=== PATIENT | male | born 1960 | race Caucasian/White ===

== ENCOUNTER 2016-12-31 12:48 | Emergency (ER) | payer OTHER ==
[~2016-12-31] VITALS: Ht 175.3 cm; Wt 90.9 kg
[2016-12-31 12:57] VITALS: BP 159/95; RESP 16; O2SAT 80
--- NOTE | 2016-12-31 13:09 | ED.REPORT ---
HPI-Facial Injury Date of Service Dec 31, 2016 ED Provider: Yannick Bhardwaj DO The patient is an otherwise healthy 56 year old male who presents to the ED due to a nosebleed onset 2 hrs ago. Yesterday, he sneezed once and began having a heavy nosebleed from his right nostril that went down the back of his throat. It stopped bleeding within 15 minutes. Today, he was sitting down 2 hrs [employer] when he started bleeding again, it again stopped in 15 minutes. He denies weakness, dizziness, and chest pain. Nursing Notes Stated Complaint: BLOODY NOSE Chief Complaint: ENT & Mouth Nursing Notes Reviewed: Yes Allergies: Coded Allergies: No Known Allergies (Unverified , 12/31/16) Scheduled PRN Oxymetazoline HCl (No Drip Nasal Aurora) 0.05 % Aurora 2 SPRAY NOSTRIL DIRECTED PRN PRN For Epistaxis General Time Seen by Provider: 13:29 Chief Complaint Nose bleed Hx Obtained From: Patient Arrived By: Walk-in Onset Occurred: Just prior to arrival Symptom Duration: Since onset Severity: Current: No pain currently Recent Healthcare: No recent doctor visit, No recent hospitalization Similar Sx Previous: No Past Medical History Past Medical History denies Past Surgical History denies Smoking History Current Every Day Smoker Social History Alcohol Use: 1-3 per day Other Social History: Good social support, , Local resident Ambulatory Status Independent Review of Systems Ears / Nose / Throat: Reports: Nose bleeding Neurologic: Denies: Dizziness, Weakness Complete sys rev & neg: except as marked. Cardiovascular: Denies: Chest pain Physical Exam Initial Vital Signs Vital Signs (First) Date Time Temp Pulse Resp B/P Pulse Ox O2 Delivery O2 Flow Rate FiO2 12/31/16 12:57 36.7 16 16 159/95 80 Room Air Initial VS: Reviewed General/Constitutional: Well-developed, Well-nourished Respiratory: Breath sounds normal, Clear to auscultation, No respiratory distress Abdomen / GI: Soft, Non-tender, No guarding, No rebound, No distention Extremities: Vascular intact, Neuro intact, No swelling, No tenderness Skin: Warm, Dry Head / Eyes: Atraumatic, Normocephalic, PERRL ENT: Atraumatic crusting blood in right nostril Neck: Atraumatic, Supple Neurologic: Oriented X3, Speech NL, No motor deficits Cardiovascular: No gallop, No murmurs, No rubs hypertensive Re-Eval/Medical Decision Med Decision/Clinical Course Med Decision/Clinical Course: NO ACTIVE BLEEDING, PT EDUCATED AND DISCHARGE PLAN PROVIDED. EDUCATED ABOUT BLOOD PRESSURE AND NEED FOR FOLLOWUP. RETURN AND FOLLOWUP PRECAUTIONS GIVEN. Counseled Regarding: Diagnosis, Lab results, Need for follow-up, When/why to return to ED Discharge & Departure Impression: Primary Impression: Epistaxis Disposition: Home Discharge Condition All VS Reviewed: Yes Condition: Stable Additional Instructions: If your nose begins bleeding again: 1. Use the nasal clamp to pinch the bridge of your nose and lean forward so the blood doesn't go down the back of your throat. 2. After 15 minutes blow your nose (hobo hanky) and then take 2 sprays of afrin to each side of your nose and re-apply the clamp. 3. If after 15 more minutes the bleeding has not stopped, return to the ED for nasal packing. Avoid coughing, sneezing, or any heavy activity that could irritate the blood vessels in your nose. If the nose doesn't stop bleeding for more then 30 minutes, return to the Emergency Department. You can also take a Q-tip with Vaseline on it, and put it on the inside of your nose. This will help keep your nose moisturized and prevent further nosebleeds. Follow up with your primary care physician regarding your elevated blood pressure. Referrals: [facility] Scribe Attestation Portion of this note were transcribed by Raissa Conrad. I, Dr. Bhardwaj, personally performed the history, physical exam, and medical decision-making: I reviewed and confirmed the accuracy for the information in the transcribed note. Signed by: berna Castro, 12/31/16 1400 copies to: [facility] Yannick Bhardwaj DO Dec 31, 2016 13:09 Raissa Conrad Dec 31, 2016 13:21
[2016-12-31] MEDS ORDERED: OXYM-45 NOSTRIL (13:27)
[2016-12-31 13:34] VITALS: BP 159/95; PULSE 16; RESP 16; O2SAT 80
== END 2016-12-31 13:27 | disposition home or self-care (01) ==
LOC: SED 12:48
DX: R04.0 Epistaxis (principal); F17.200 Nicotine dependence, unspecified, uncomplicated